=== PATIENT | male | born 1975 | race Caucasian/White ===

== ENCOUNTER 2019-11-05 16:01 | Emergency (ER) | payer MEDICAID ==
[~2019-11-05] VITALS: Ht 172.7 cm; Wt 68.2 kg
[~2019-11-05 16:01] MED LIST: CIPRO 100MG TA100 MG PO; FLEXERIL 1010 MG/TAB PO; LORTAB 5/500 501 TAB PO; MOTRIN 400400 MG/TAB PO; NAPROSYN500 MG PO; NO HOME MEDICATIONS; NORCO 325 MG-51 TAB PO; NORCO 325 MG-7.1 TAB PO; PENICILLIN V500 MG PO; PERCOCET 325 MG1 TA2 PO; PHENERGAN 25 TA25 MG PO; PHENERGAN25 MG RC; REMERON 15M15 MG/TA1 PO; RISPERDAL 1M1 MG/TAB PO
[2019-11-05 16:15] VITALS: TEMP 99.4
[2019-11-05 16:56] LABS: COLLECTION METHOD CLEAN CATCH
[2019-11-05 17:12] LABS: MUCOUS Present /lpf; PH 5 (5-8); SQUAMOUS EPITHELIAL 0-2 /hpf; URINE APPEARANCE Clear; URINE BACTERIA None Seen /hpf; URINE BILIRUBIN Negative (NEGATIVE); URINE BLOOD Negative (NEGATIVE); URINE COLOR Yellow; URINE GLUCOSE Negative (NEGATIVE); URINE KETONE Negative (NEGATIVE); URINE LEUKOCYTE ESTERASE Trace (NEGATIVE); URINE NITRATE Negative (NEGATIVE); URINE PROTEIN(semi-quant) Negative (NEGATIVE); URINE RBC 0-2 /hpf; URINE UROBILINOGEN Negative (NEGATIVE)
[2019-11-05 17:39] LABS: BASO # 0.1 (0.0-0.2); BASO % 0.7 % (0.0-2.0); EOS # 0.1 (0.0-0.7); EOS % 0.4 % (0-4.0); GRAN # 13.4 (1.4-6.5); GRAN % 78.8 % (42.2-75.2); HEMATOCRIT 48.5 % (42.0-52.0); HEMOGLOBIN 16.7 g/dl (13.5-18.0); LYMPH # 2.3 (1.2-3.4); LYMPH % 13.7 % (20.0-51.0); MEAN CELL VOLUME 87 fl (80.0-100.0); MEAN CORPUSCULAR HEMOGLOBIN 30 pg (27.0-31.0); MEAN CORPUSCULAR HGB CONC 34 g/dl (33.0-37.0); PLATELET COUNT 386 K/mm3 (130-400); RED BLOOD COUNT 5.56 M/mm3 (4.20-5.60); REDCELL DISTRIBUTION WIDTH-CV 13.7 % (11.5-14.5)
[2019-11-05 17:41] LABS: ALANINE AMINOTRANSFERASE 61 U/L (4-49); ALBUMIN 4.5 gm/dL (3.5-5.0); ALKALINE PHOSPHATASE 98 U/L (50-136); ANION GAP 10 mmol/L (7-16); AST,SGOT 35 U/L (15-37); BILIRUBIN,TOTAL 0.4 mg/dL (0.0-1.0); BLOOD UREA NITROGEN 16 mg/dL (9-20); CALCIUM 9.4 mg/dL (8.4-10.2); CARBON DIOXIDE 24 mmol/L (22-30); CHLORIDE 105 mmol/L (98-107); CREATININE, serum 0.76 (0.66-1.25); GLUCOSE 107 mg/dL (74-106); POTASSIUM 3.8 mmol/L (3.4-5.0); SODIUM 139 mmol/L (137-145); TOTAL PROTEIN 8.4 gm/dL (6.4-8.2)
[2019-11-05 17:43] LABS: ACETAMINOPHEN < 10 ug/mL (10-30); ALCOHOL(ethanol),MEDICAL < 10 mg/dL; SALICYLATE < 1.0 mg/dL
[2019-11-05 17:43] LABS: TRICYCLIC ANTIDEPRESS URINE NEGATIVE
[2019-11-05] MEDS ORDERED: PROZAC 20MG20 MG PO (18:17)
[2019-11-06 00:29] VITALS: BP 113/73; PULSE 84
== END 2019-11-06 00:30 | disposition short-term general hospital (02) ==
LOC: COL.ER 16:01
PROVIDERS: Emergency Medicine
DX: R45.851 Suicidal ideations (principal); F23 Brief psychotic disorder; I10 Essential (primary) hypertension; F20.9 Schizophrenia, unspecified; F17.210 Nicotine dependence, cigarettes, uncomplicated; Z20.828 Contact with and (suspected) exposure to other viral communicable diseases; Z88.1 Allergy status to other antibiotic agents; Z88.6 Allergy status to analgesic agent

== ENCOUNTER 2019-12-21 11:30 | Emergency (ER) | payer MEDICAID ==
[~2019-12-21] VITALS: Ht 172.7 cm; Wt 61.4 kg
[~2019-12-21 11:30] MED LIST changes: +PROZAC 20MG20 MG PO
[2019-12-21 13:00] LABS: COLLECTION METHOD CLEAN CATCH
[2019-12-21 13:07] LABS: MUCOUS Present /lpf; PH 5 (5-8); SQUAMOUS EPITHELIAL None Seen /hpf; URINE APPEARANCE Clear; URINE BACTERIA None Seen /hpf; URINE BILIRUBIN Negative (NEGATIVE); URINE BLOOD Negative (NEGATIVE); URINE COLOR Yellow; URINE GLUCOSE Negative (NEGATIVE); URINE KETONE Negative (NEGATIVE); URINE LEUKOCYTE ESTERASE Negative (NEGATIVE); URINE NITRATE Negative (NEGATIVE); URINE PROTEIN(semi-quant) Negative (NEGATIVE); URINE RBC 0-2 /hpf; URINE UROBILINOGEN Negative (NEGATIVE)
[2019-12-21 13:15] LABS: BASO # 0.2 (0.0-0.2); BASO % 1.4 % (0.0-2.0); EOS # 0.4 (0.0-0.7); EOS % 4.2 % (0-4.0); GRAN # 5.6 (1.4-6.5); GRAN % 53.5 % (42.2-75.2); HEMATOCRIT 49.7 % (42.0-52.0); HEMOGLOBIN 16.7 g/dl (13.5-18.0); LYMPH # 3.4 (1.2-3.4); LYMPH % 32.4 % (20.0-51.0); MEAN CELL VOLUME 90 fl (80.0-100.0); MEAN CORPUSCULAR HEMOGLOBIN 30 pg (27.0-31.0); MEAN CORPUSCULAR HGB CONC 34 g/dl (33.0-37.0); MEAN PLATELET VOLUME 9.5 fl (7.4-10.4); MONO # 0.9 (0.1-0.6); MONO % 8.2 % (1.7-9.3); PLATELET COUNT 326 K/mm3 (130-400)
[2019-12-21 13:19] LABS: TRICYCLIC ANTIDEPRESS URINE NEGATIVE
[2019-12-21 13:28] LABS: ACETAMINOPHEN < 10 ug/mL (10-30); ALCOHOL(ethanol),MEDICAL < 10 mg/dL; SALICYLATE < 1.0 mg/dL
[2019-12-21 17:06] VITALS: BP 135/91; PULSE 86; TEMP 98.2
== END 2019-12-21 17:08 | disposition home or self-care (01) ==
LOC: COL.ER 11:30
PROVIDERS: Nurse Practitioner Primary Care
DX: S00.93XA Contusion of unspecified part of head, initial encounter (principal); R44.0 Auditory hallucinations; F41.9 Anxiety disorder, unspecified; F17.210 Nicotine dependence, cigarettes, uncomplicated; Z20.828 Contact with and (suspected) exposure to other viral communicable diseases; Z86.73 Personal history of transient ischemic attack (TIA), and cerebral infarction without residual deficits; Z88.1 Allergy status to other antibiotic agents; Z87.442 Personal history of urinary calculi; X58.XXXA Exposure to other specified factors, initial encounter

== ENCOUNTER 2020-04-21 11:17 | Inpatient (IN) | payer MEDICAID ==
[~2020-04-21] VITALS: Ht 172.7 cm; Wt 64.3 kg
[2020-04-21] VITALS (189 sets, daily range): BP systolic 114–157; BP diastolic 75–111; PULSE 10–109; TEMP 98.8–100.1; O2SAT 89–97
[2020-04-21 11:32] LABS: MEAN CELL VOLUME 90 fl (80.0-100.0); MEAN CORPUSCULAR HGB CONC 34 g/dl (33.0-37.0); MEAN PLATELET VOLUME 9.8 fl (7.4-10.4); PLATELET COUNT 398 K/mm3 (130-400); RED BLOOD COUNT 6.22 M/mm3 (4.20-5.60); REDCELL DISTRIBUTION WIDTH-CV 14.6 % (11.5-14.5)
[2020-04-21 11:34] LABS: HEMOGLOBIN 18.7 g/dl (13.5-18.0); MEAN CORPUSCULAR HEMOGLOBIN 30 pg (27.0-31.0)
[2020-04-21 11:35] LABS: HEMATOCRIT 55.9 % (42.0-52.0)
[2020-04-21] MEDS ORDERED: ZYPREXA 5MG5 MG PO (11:35)
[2020-04-21] MEDS ORDERED: SAPHRIS5 MG SL (11:35)
[2020-04-21] MEDS ORDERED: PROZAC40 MG PO (11:36)
[2020-04-21 11:41] LABS: ALANINE AMINOTRANSFERASE 30 U/L (4-49); ALBUMIN 4.6 gm/dL (3.5-5.0); ALKALINE PHOSPHATASE 108 U/L (50-136); ANION GAP 12 mmol/L (7-16); AST,SGOT 29 U/L (15-37); BILIRUBIN,TOTAL 0.9 mg/dL (0.0-1.0); BLOOD UREA NITROGEN 19 mg/dL (9-20); CALCIUM 9.7 mg/dL (8.4-10.2); CARBON DIOXIDE 24 mmol/L (22-30); CHLORIDE 102 mmol/L (98-107); CREATININE, serum 1.06 (0.66-1.25); GLUCOSE 102 mg/dL (74-106); POTASSIUM 4.7 mmol/L (3.4-5.0); SODIUM 137 mmol/L (137-145); TOTAL PROTEIN 9.2 gm/dL (6.4-8.2)
[2020-04-21 11:44] LABS: ACETAMINOPHEN < 10 ug/mL (10-30); ALCOHOL(ethanol),MEDICAL < 10 mg/dL; SALICYLATE < 1.0 mg/dL
[2020-04-21 12:04] LABS: BAND 5 % (0-10); LYMPHOCYTE 13 % (20.0-51.0); NEUTROPHILS 74 % (42.0-75.2)
[2020-04-21 12:06] LABS: SPHEROCYTE 1+
[2020-04-21 14:19] LABS: TRICYCLIC ANTIDEPRESS URINE POSITIVE
--- NOTE | 2020-04-21 18:15 | NUR ---
JANES LOGAN APPROACHED THIS NURSE ASKING TO CALL POISON CONTROL REGARDING PT. CALLED AND WAS INFORMED THAT THEY HAD ALREADY BEEN NOTIFIED BY OCTAVIO MARTINEZ IN EMERGENCY. CASE HAS BEEN FILED CLOSED.
--- NOTE | 2020-04-21 18:25 | NUR ---
RECEIVED PATIENT TO ICU BED 5 VIA STRETCHER. PT ABLE TO STAND AND POSITION SELF INTO ICU BED. STEADY GAIT NOTED. PATIENT ON ROOM AIR. PLACED ON BEDSIDE CONTINUOUS MONITOR. VSS. PATIENT IS IN [place] GOWN. PERSONAL BELONGINGS PLACED IN BAG AND PLACED INTO ICU LOCKED CABINET. PERSONAL BELONGINGS INCLUDE: CLOTHES, WALLET, KEYS, CELL PHONE AND OFFICE SWEEPER. PT AWARE OF SUICIDE PRECAUTIONS. VERBALIZED UNDERSTANDING. CALL LIGHT WITHIN REACH.
--- NOTE | 2020-04-21 18:50 | NUR ---
CALLED JANES LOGAN REGARDING PATIENT OBSERVATION STATUS DUE TO ICU ROOMS NOT BEING LIGATURE FREE. PATIENT IS NOT CURRENTLY HAVING ANY SUICIDAL IDEATIONS OR AGGRESSIVE LIKE BEHAVIORS. JANES LOGAN SPOKE TO DR. SMITH. SEE NEW ORDERS.
--- NOTE | 2020-04-21 19:55 | NUR ---
Report recieved from Roseline CUNNINGHAM. Patient is resting in bed, I did take him to the bedside comde and he had a bowel movement. He is very stable on his feet, follows commands and is not aggresive. His vitals are stable and he has no complaints. I will attempt to call Malachi from the Crisis center.
--- NOTE | 2020-04-21 20:00 | NUR ---
I attempted to call the Crisis Center to contact Malachi but they stated "Only the hotline is running right now". It is 8pm currently but I'll pass the message to dayshift.
--- NOTE | 2020-04-21 22:20 | NUR ---
Dr Colin called to check up on the patient, we looked at some lab values together. She wanted to ensure he wasn't having any Rhabdo symptoms and we double checked the CK and it's 71. She said to inform her if I need anything.
[2020-04-22] VITALS (697 sets, daily range): BP systolic 105–158; BP diastolic 62–110; PULSE 58–107; TEMP 97.8–99; O2SAT 76–98
[2020-04-22 05:50] LABS: HEMATOCRIT 51.1 % (42.0-52.0); HEMOGLOBIN 16.8 g/dl (13.5-18.0); MEAN CELL VOLUME 91 fl (80.0-100.0); MEAN CORPUSCULAR HEMOGLOBIN 30 pg (27.0-31.0); MEAN CORPUSCULAR HGB CONC 33 g/dl (33.0-37.0); MEAN PLATELET VOLUME 10.1 fl (7.4-10.4); PLATELET COUNT 312 K/mm3 (130-400); RED BLOOD COUNT 5.62 M/mm3 (4.20-5.60); REDCELL DISTRIBUTION WIDTH-CV 14.5 % (11.5-14.5)
[2020-04-22 06:02] LABS: CALCIUM 9.1 mg/dL (8.4-10.2); POTASSIUM 4.3 mmol/L (3.4-5.0)
[2020-04-22 06:15] LABS: BAND 1 % (0-10); EOSINOPHIL 1 % (0-4); LYMPHOCYTE 28 % (20.0-51.0); NEUTROPHILS 63 % (42.0-75.2)
[2020-04-22 06:16] LABS: PLATELET ESTIMATE NORMAL (NORMAL)
--- NOTE | 2020-04-22 07:58 | NUR ---
Shift assessment complete at this time. Plan of care reviewed at bedside with patient. Additional time take to address any other needs or concerns. Vitals stable at this time. Denies pain or any other discomforts. Level II suicide precautions maintained. Bed in low position, call light within reach.
--- NOTE | 2020-04-22 11:11 | NUR ---
Dr. Tamayo at bedside rounding on Pt. Plan of care discussed. Will advance diet to mechanical soft and then to general as tolerates. Okay with Pt having his cell phone in the room with him.
--- NOTE | 2020-04-22 15:29 | NUR ---
Patient is awaiting psychiatric screen from [facility].
--- NOTE | 2020-04-22 16:20 | NUR ---
PATIENT REPORTED THAT HE IS STARTING TO HEAR "THE VOICE" AGAIN. ON FURTHER INQUIRY, PATIENT STATED THE VOICE IS "MUFFLED BUT IT'S THERE AND IT'S STARTING". STATED THE VOICE IS FEMALE AND THAT HE IS BEGINNING TO GET WORKED UP. CALLED DR. GALEANO REGARDING HOME MEDICATIONS AND A POSSIBLE SEDATIVE. AWAITING FURTHER INSTRUCTIONS.
--- NOTE | 2020-04-22 20:15 | NUR ---
Patient resting in bed; Assessment complete. Reports being "cold". Offered and accepted a warm blanket. Denies any other needs or concerns at this time. Call light left within reach; will continue to monitor.
[2020-04-23] VITALS (277 sets, daily range): BP systolic 105–126; BP diastolic 74–83; PULSE 85–102; TEMP 98.4–100.8; O2SAT 88–97
--- NOTE | 2020-04-23 | NUR ---
Patient sleeping in bed. Drowsy but awakens with verbal stimuli; follows basic commands and is cooperative with staff. Call light left within reach.
[2020-04-23 05:32] LABS: BASO # 0.1 (0.0-0.2); EOS # 0.1 (0.0-0.7); EOS % 1.3 % (0-4.0); GRAN % 61.4 % (42.2-75.2); HEMATOCRIT 50.7 % (42.0-52.0); HEMOGLOBIN 17.2 g/dl (13.5-18.0); LYMPH # 2.4 (1.2-3.4); LYMPH % 24.6 % (20.0-51.0); MEAN CELL VOLUME 89 fl (80.0-100.0); MEAN CORPUSCULAR HEMOGLOBIN 30 pg (27.0-31.0); MEAN CORPUSCULAR HGB CONC 34 g/dl (33.0-37.0); MEAN PLATELET VOLUME 10.1 fl (7.4-10.4); MONO # 1.1 (0.1-0.6); MONO % 11.5 % (1.7-9.3); PLATELET COUNT 292 K/mm3 (130-400); RED BLOOD COUNT 5.68 M/mm3 (4.20-5.60); REDCELL DISTRIBUTION WIDTH-CV 14.2 % (11.5-14.5)
[2020-04-23 05:43] LABS: CALCIUM 8.6 mg/dL (8.4-10.2); CREATININE, serum 0.95 (0.66-1.25); POTASSIUM 4.1 mmol/L (3.4-5.0)
--- NOTE | 2020-04-23 07:20 | NUR ---
RECEIVED REPORT FROM OCTAVIO ROBINS. PT RESTING EASILY IN BED. PT ON RA. VSS. CALL LIGHT AND URINAL WITHIN REACH.
--- NOTE | 2020-04-23 10:35 | NUR ---
DR SYLVESTER AT BEDSIDE FOR ASSESSMENT. NOTIFIED PHYSICIAN OF WHITE PATCHES IN PT'S MOUTH. NEW ORDERS RECEIVED.
--- NOTE | 2020-04-23 11:46 | NUR ---
[facility] SCREEN PERFORMED. SCREENER STATES PT HAS AGREED TO GO TO THE [facility] IN [place] ONCE PHYSICIAN DCs PT AND THAT THEY CAN COME PICK HIM UP TO TAKE HIM THERE. ATTEMPTED TO LET DR SYLVESTER KNOW, WILL TRY AGAIN.
--- NOTE | 2020-04-23 12:00 | NUR ---
SPOKE TO DR HUBBARD ABOUT [facility]S SCREENING. NEW ORDERS RECEIVED.
[2020-04-23] MEDS ORDERED: NYSTATIN OR100 MU/ML PO (12:07)
[2020-04-23] MEDS ORDERED: LIDOCAINE HCL100 M1 MM (12:08)
[2020-04-23] MEDS ORDERED: CLEOCIN HC150 MG/CAP PO (12:09)
--- NOTE | 2020-04-23 14:20 | NUR ---
PT SENT HOME WITH [facility] IN [place] AND INSTRUCTED TO GO ENTERTAINMENT USHER PRESCRIPTIONS FROM [facility]. ALL PERSONAL BELONGINGS SENT WITH PT.
== END 2020-04-23 14:15 | DRG 918 ==
LOC: COL.ER 11:17 → ICU 15:43
PROVIDERS: Emergency Medicine; Student in an Organized Health Care Education/Training Program; ADMIT Internal Medicine
DX: T44.3X2A Poisoning by other parasympatholytics [anticholinergics and antimuscarinics] and spasmolytics, intentional self-harm, initial encounter (principal); R65.10 Systemic inflammatory response syndrome (SIRS) of non-infectious origin without acute organ dysfunction; R45.851 Suicidal ideations; B37.0 Candidal stomatitis; F20.9 Schizophrenia, unspecified; F17.210 Nicotine dependence, cigarettes, uncomplicated; Z20.822 Contact with and (suspected) exposure to COVID-19; Z87.442 Personal history of urinary calculi
CPT/HCPCS: 99223-AI; 99233-AI; 99239; J0696; J1650; J2060; J7030; Q9967

== ENCOUNTER 2021-03-16 10:28 | Emergency (ER) | payer MEDICAID ==
[~2021-03-16] VITALS: Ht 172.7 cm; Wt 77.3 kg
[~2021-03-16 10:28] MED LIST changes: +CLEOCIN HC150 MG/CAP PO; +LIDOCAINE HCL100 M1 MM; +NYSTATIN OR100 MU/ML PO; +PROZAC40 MG PO; +SAPHRIS5 MG SL; +ZYPREXA 5MG5 MG PO
[2021-03-16 10:42] VITALS: TEMP 97.9
[2021-03-16 11:10] LABS: BASO # 0.1 K/mm3 (0.0-0.2); EOS % 0.1 % (0.0-4.0); GRAN # 5.6 K/mm3 (1.4-6.5); GRAN % 70.8 % (42.2-75.2); HEMATOCRIT 48.4 % (42.0-52.0); HEMOGLOBIN 16.5 g/dl (13.5-18.0); LYMPH # 1.2 K/mm3 (1.2-3.4); LYMPH % 14.7 % (20.0-51.0); MEAN CELL VOLUME 86 fl (80.0-100.0); MEAN CORPUSCULAR HEMOGLOBIN 29 pg (27-31); MEAN CORPUSCULAR HGB CONC 34 g/dl (33.0-37.0); MEAN PLATELET VOLUME 10.4 fl (7.4-10.4); MONO % 13.3 % (1.7-9.3); PLATELET COUNT 318 K/mm3 (130-400); RED BLOOD COUNT 5.64 M/mm3 (4.20-5.60); REDCELL DISTRIBUTION WIDTH-CV 14.8 % (11.5-14.5)
[2021-03-16 11:27] LABS: ALBUMIN 3.7 gm/dL (3.5-5.0); BILIRUBIN,TOTAL 0.7 mg/dL (0.2-1.2); CALCIUM 9.1 mg/dL (8.4-10.2); CREATININE, serum 0.98 mg/dL (0.72-1.25); POTASSIUM 3.3 mmol/L (3.5-4.5); TOTAL PROTEIN 7.9 gm/dL (6.2-8.1)
[2021-03-16 12:05] LABS: COLLECTION METHOD CLEAN CATCH
[2021-03-16 12:13] LABS: MUCOUS Present (NOT PRESENT); PH 5 (5-8); SQUAMOUS EPITHELIAL None Seen /hpf (0-10); URINE APPEARANCE Clear (CLEAR/HAZY); URINE BACTERIA None Seen /hpf (NONE SEEN); URINE BILIRUBIN Negative (NEGATIVE); URINE BLOOD Negative (NEGATIVE); URINE COLOR Yellow (YELLOW); URINE GLUCOSE Negative (NEGATIVE); URINE KETONE 2+ (NEGATIVE); URINE LEUKOCYTE ESTERASE Negative (NEGATIVE); URINE NITRATE Negative (NEGATIVE); URINE PROTEIN(semi-quant) 2+ (NEGATIVE); URINE RBC 0-2 /hpf (0-2)
[2021-03-16 14:33] VITALS: BP 161/113; PULSE 86
== END 2021-03-16 14:31 | disposition home or self-care (01) ==
LOC: COL.ER 10:28
PROVIDERS: Emergency Medicine
DX: R10.9 Unspecified abdominal pain (principal); F20.9 Schizophrenia, unspecified; Z87.442 Personal history of urinary calculi; Z96.0 Presence of urogenital implants; Z79.899 Other long term (current) drug therapy
CPT/HCPCS: J1885; Q9967